=== PATIENT | female | born 1940 | race Caucasian/White ===

== ENCOUNTER 2016-07-04 09:51 | Inpatient (IN) | payer MEDICARE, BC ==
[2016-07-04] MEDS ORDERED: Sodium Chloride 0.9% 10 ML Syringe FLUSH PRN ×3 (11:01→17:00)
[2016-07-04] MEDS ORDERED: Lactated Ringers 1,000 ML IV ONE (11:01)
[2016-07-04] MEDS ORDERED: Albuterol/Ipratropium 3.0-0.5 MG/3 ML Neb Soln NEB ONE (11:03)
--- NOTE | 2016-07-04 11:08 | EDM.PDOC ---
ED HISTORY OF PRESENT ILLNESS - General Chief Complaint: Respiratory Problem Stated Complaint: CHEST CONGESTION Time Seen by Provider: 07/04/16 10:48 Source: Reports: Patient, Provider, RN notes reviewed History Limitations: Reports: No limitations - History of Present Illness INITIAL COMMENTS - FREE TEXT/NARRATIVE: 76-year-old female presents emergency department today for evaluation of increasing shortness of breath and hypoxia, she is a known history of throat cancer and pulmonary embolism is currently anticoagulated pro time this morning was 4.05, she was evaluated in the clinic by her primary care provider found to be hypoxic in the low 80% O2 saturation range was sent to the emergency department for further evaluation. Also she has been complaining of black tarry stools where she had a fairly large bowel movement last night. She states he's been ill for about 3 weeks with increasing shortness of breath - Related Data Allergies/ADRs: Allergies Allergy/AdvReac Type Severity Reaction Status Date / Time Iodinated Contrast Media - Allergy Severe Difficulty Verified 06/22/14 01:58 Oral and Breathing codeine Allergy Itching Verified 06/22/14 01:58 Penicillins Allergy Itching Verified 06/22/14 01:58 tetanus and diphtheria Allergy Itching Verified 06/22/14 01:58 toxoids [Tetanus&Diphtheria Toxoid] Home Meds: Home Meds Multivit-Min/FA/Lutein/Zeaxant [Macular Vitamin Tablet] 1 tab PO BID 05/09/14 [ History] Warfarin [Coumadin] 7.5 mg PO ASDIRECTED 05/09/14 [History] Acetaminophen [Tylenol] 650 mg PO BID PRN 06/17/14 [History] Metolazone [Zaroxolyn] 2.5 mg PO MOWEFR 06/17/14 [History] Furosemide [Lasix] 40 mg PO DAILY 06/19/14 [History] predniSONE [Prednisone] 10 mg PO ASDIRECTED PRN 06/22/14 [History] Morphine Sulfate 5 - 10 mg PO Q4H PRN 07/04/16 [History] Past Medical History Cardiovascular History: Reports: Heart Failure 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: Endocrine/Metabolic History: Reports: Diabetes, type II Oncologic (Cancer) History: Reports: Esophageal - Past Surgical History GI Surgical History: Reports: Appendectomy, Cholecystectomy Social & Family History - Tobacco Use Smoking Status *Q: Never Smoker Years of Tobacco use: 55 Used Tobacco, but Quit: Yes Month Tobacco Last Used: 0 Second Hand Smoke Exposure: No - Caffeine Use Caffeine Use: Reports: None - Alcohol Use Days Per Week of Alcohol Use: 0 - Recreational Drug Use Recreational Drug Use: No ED ROS GENERAL - Review of Systems Review Of Systems: See Below Constitutional: Reports: chills, weakness. Denies: fever HEENT: Reports: No symptoms Respiratory: Reports: Shortness of Breath, Wheezing, Cough Cardiovascular: Reports: Edema GI/Abdominal: Reports: Black stool Musculoskeletal: Reports: no symptoms Skin: Reports: no symptoms Neurological: Reports: No Symptoms Psychiatric: Reports: No symptoms ED EXAM, GENERAL - Physical Exam Exam: See Below Free Text/Narrative:: General: Female, not in any distress, alert and oriented x3 HEENT: head is atraumatic normocephalic, eyes pupils equal round reactive to light, sclera clear no conjunctivitis appreciated. Ears blocked by cerumen bilaterally. Nose no septal deviation, nares are clear, no blood present. Mouth mucosa is dry and pink no erythema or exudate noted in soft palate, tongue is midline uvula is midline, dentition is intact. Neck: Supple no thyromegaly no tracheal deviation. Nodes: Cervical nodes subclavicular nodes nontender no palpable lymphadenopathy noted. Lungs: Wheezing and rhonchi mid to lower lung pete bilaterally CV: Regular rate and rhythm S1 and S2 appreciated no murmurs rubs or gallops noted. Abdomen: Soft, generalized tenderness to palpation, no palpable masses or organomegaly appreciated, no distention no guarding bowel sounds are present, . Neuro: Cranial nerves II through XII grossly intact Skin: Warm and dry, intact Extremities: +3 pitting edema bilaterally Course - Vital Signs Last Recorded V/S: Last Vital Signs Temp 97.3 F 07/04/16 10:25 Pulse 73 07/04/16 10:25 Resp 17 07/04/16 10:25 BP 90/64 07/04/16 10:25 Pulse Ox 92 L 07/04/16 10:25 - Orders/Labs/Meds Orders: Active Orders 24 hr Category Date Time Status Admission Status [Patient Status] [ADT] Routine ADT 07/04/16 12:56 Active Peripheral IV Care [RC] . DIRECTED Care 07/04/16 11:02 Active Peripheral IV Care [RC] . DIRECTED Care 07/04/16 11:14 Active RT Aerosol Therapy [RC] ASDIRECTED Care 07/04/16 11:04 Active CULTURE BLOOD [BC] Urgent Lab 07/04/16 11:10 Received CULTURE BLOOD [BC] Urgent Lab 07/04/16 11:15 Received CULTURE RESPIRATORY + SMEAR [RM] Stat Lab 07/04/16 12:21 Uncollected INFLUENZA A+B AG SCREEN [RM] Urgent Lab 07/04/16 11:01 Uncollected UA W/MICROSCOPIC [URIN] Stat Lab 07/04/16 13:15 Ordered Levofloxacin/Dextrose 5%-Water [Levaquin in D5W 750 MG/ Med 07/04/16 12:21 Active 150 ML] 750 mg Premix Bag 1 bag IV ONETIME Sodium Chloride 0.9% [Saline Flush] Med 07/04/16 11:01 Active 10 ml FLUSH ASDIRECTED PRN Sodium Chloride 0.9% [Saline Flush] Med 07/04/16 11:13 Active 10 ml FLUSH ASDIRECTED PRN Blood Culture x2 Reflex Set [OM.PC] Urgent Oth 07/04/16 11:03 Ordered Peripheral IV Insertion Adult [OM.PC] Routine Oth 07/04/16 11:13 Ordered Peripheral IV Insertion Adult [OM.PC] Urgent Oth 07/04/16 11:01 Ordered Medication Orders Levofloxacin/Dextrose 750 mg/ (Premix) 150 mls @ 100 mls/hr IV ONETIME ONE Stop: 07/04/16 13:50 Last Admin: 07/04/16 12:40 Dose: 100 mls/hr Sodium Chloride (Saline Flush) 10 ml FLUSH ASDIRECTED PRN PRN Reason: Keep Vein Open Last Admin: 07/04/16 11:26 Dose: 10 ml Sodium Chloride (Saline Flush) 10 ml FLUSH ASDIRECTED PRN PRN Reason: Keep Vein Open Last Admin: 07/04/16 11:26 Dose: 10 ml Labs: Laboratory Tests 07/04/16 07/04/16 07/04/16 Range/Units 11:15 11:15 11:15 WBC 7.3 (4.5-11.0) K/uL RBC 4.92 (3.30-5.50) M/uL Hgb 13.9 (12.0-15.0) g/dL Hct 45.1 (36.0-48.0) % MCV 92 (80-98) fL MCH 28 (27-31) pg MCHC 31 L (32-36) % Plt Count 216 (150-400) K/uL Neut % (Auto) 67 H (36-66) % Lymph % (Auto) 19 L (24-44) % Stone % (Auto) 12 H (2-6) % Eos % (Auto) 2 (2-4) % Baso % (Auto) 1 (0-1) % Sodium 144 (140-148) mmol/L Potassium 4.7 (3.6-5.2) mmol/L Chloride 105 (100-108) mmol/L Carbon Dioxide 36 H (21-32) mmol/L Anion Gap 7.7 (5.0-14.0) mmol/L BUN 24 H (7-18) mg/dL Creatinine 0.7 (0.6-1.0) mg/dL Est Cr Clr Drug Dosing 66.49 mL/min Estimated GFR (MDRD) > 60 (>60) Glucose 107 H (74-106) mg/dL Lactic Acid 1.1 (0.4-2.0) mmol/L Calcium 8.4 L (8.5-10.1) mg/dL Total Bilirubin 0.3 (0.2-1.0) mg/dL AST 18 (15-37) U/L ALT 23 (12-78) U/L Alkaline Phosphatase 108 (46-116) U/L Cpx-N-Hqsvapxmnhh Pept (5-450) pg/mL Total Protein 7.3 (6.4-8.2) g/dL Albumin 2.9 L (3.4-5.0) g/dL Globulin 4.4 H (2.3-3.5) g/dL Albumin/Globulin Ratio 0.7 L (1.2-2.2) 07/04/16 Range/Units 11:15 WBC (4.5-11.0) K/uL RBC (3.30-5.50) M/uL Hgb (12.0-15.0) g/dL Hct (36.0-48.0) % MCV (80-98) fL MCH (27-31) pg MCHC (32-36) % Plt Count (150-400) K/uL Neut % (Auto) (36-66) % Lymph % (Auto) (24-44) % Stone % (Auto) (2-6) % Eos % (Auto) (2-4) % Baso % (Auto) (0-1) % Sodium (140-148) mmol/L Potassium (3.6-5.2) mmol/L Chloride (100-108) mmol/L Carbon Dioxide (21-32) mmol/L Anion Gap (5.0-14.0) mmol/L BUN (7-18) mg/dL Creatinine (0.6-1.0) mg/dL Est Cr Clr Drug Dosing mL/min Estimated GFR (MDRD) (>60) Glucose (74-106) mg/dL Lactic Acid (0.4-2.0) mmol/L Calcium (8.5-10.1) mg/dL Total Bilirubin (0.2-1.0) mg/dL AST (15-37) U/L ALT (12-78) U/L Alkaline Phosphatase (46-116) U/L Pyl-N-Euvoinpfypq Pept 148 (5-450) pg/mL Total Protein (6.4-8.2) g/dL Albumin (3.4-5.0) g/dL Globulin (2.3-3.5) g/dL Albumin/Globulin Ratio (1.2-2.2) Meds: Medications Generic Name Dose Route Start Last Admin Trade Name Freq PRN Reason Stop Dose Admin Levofloxacin/Dextrose 750 mg/ 150 mls @ 100 mls/hr 07/04/16 12:21 07/04/16 12 :40 Premix IV 07/04/16 13:50 100 mls/hr ONETIME ONE Administration Sodium Chloride 10 ml 07/04/16 11:01 07/04/16 11:26 Saline Flush FLUSH 10 ml ASDIRECTED PRN Administration Keep Vein Open Sodium Chloride 10 ml 07/04/16 11:13 07/04/16 11:26 Saline Flush FLUSH 10 ml ASDIRECTED PRN Administration Keep Vein Open Discontinued Medications Generic Name Dose Route Start Last Admin Trade Name Freq PRN Reason Stop Dose Admin Albuterol/Ipratropium 3 ml 07/04/16 11:03 07/04/16 11:24 Duoneb 3.0-0.5 Mg/3 Ml NEB 07/04/16 11:04 3 ml ONETIME ONE Administration Lactated Ringer's 1,000 mls @ 500 mls/hr 07/04/16 11:01 07/04/16 11:25 Ringers, Lactated IV 07/04/16 13:00 500 mls/hr ASDIRECTED ONE Administration Departure - Departure Time of Disposition: 13:24 Disposition: Admitted As Inpatient 66 Condition: poor Clinical Impression: Pneumonia Qualifiers: Pneumonia type: due to unspecified organism Laterality: right Lung location: lower lobe of lung Qualified Code(s): J18.1 - Lobar pneumonia, unspecified organism Forms: ED Department Discharge - My Orders Last 24 Hours: My Active Orders 07/04/16 11:01 INFLUENZA A+B AG SCREEN [RM] Urgent Sodium Chloride 0.9% [Saline Flush] 10 ml FLUSH ASDIRECTED PRN Peripheral IV Insertion Adult [OM.PC] Urgent 07/04/16 11:02 Peripheral IV Care [RC] . DIRECTED 07/04/16 11:03 Blood Culture x2 Reflex Set [OM.PC] Urgent 07/04/16 11:04 RT Aerosol Therapy [RC] ASDIRECTED 07/04/16 11:10 CULTURE BLOOD [BC] Urgent 07/04/16 11:13 Sodium Chloride 0.9% [Saline Flush] 10 ml FLUSH ASDIRECTED PRN Peripheral IV Insertion Adult [OM.PC] Routine 07/04/16 11:14 Peripheral IV Care [RC] . DIRECTED 07/04/16 11:15 CULTURE BLOOD [BC] Urgent 07/04/16 12:21 CULTURE RESPIRATORY + SMEAR [RM] Stat Levofloxacin/Dextrose 5%-Water [Levaquin in D5W 750 MG/150 ML] 750 mg Premix Bag 1 bag IV ONETIME 07/04/16 13:15 UA W/MICROSCOPIC [URIN] Stat - Assessment/Plan Last 24 Hours: My Active Orders 07/04/16 11:01 INFLUENZA A+B AG SCREEN [RM] Urgent Sodium Chloride 0.9% [Saline Flush] 10 ml FLUSH ASDIRECTED PRN Peripheral IV Insertion Adult [OM.PC] Urgent 07/04/16 11:02 Peripheral IV Care [RC] . DIRECTED 07/04/16 11:03 Blood Culture x2 Reflex Set [OM.PC] Urgent 07/04/16 11:04 RT Aerosol Therapy [RC] ASDIRECTED 07/04/16 11:10 CULTURE BLOOD [BC] Urgent 07/04/16 11:13 Sodium Chloride 0.9% [Saline Flush] 10 ml FLUSH ASDIRECTED PRN Peripheral IV Insertion Adult [OM.PC] Routine 07/04/16 11:14 Peripheral IV Care [RC] . DIRECTED 07/04/16 11:15 CULTURE BLOOD [BC] Urgent 07/04/16 12:21 CULTURE RESPIRATORY + SMEAR [RM] Stat Levofloxacin/Dextrose 5%-Water [Levaquin in D5W 750 MG/150 ML] 750 mg Premix Bag 1 bag IV ONETIME 07/04/16 13:15 UA W/MICROSCOPIC [URIN] Stat Plan: Assessment Acuity = acute Site and laterality = community-acquired pneumonia complicated patient with known history of throat cancer and pulmonary embolism on chronic anticoagulation , also concern for development of GI bleed with black tarry stools Etiology = suspicious for bacterial cause for pneumonia, for GI bleed supratherapeutic INR Manifestations = hypoxia, dyspnea Location of injury = home Lab values = CBC CMP unremarkable lactic acid within normal range albumin low at 2.9 consistent hypoalbuminemia INR is supratherapeutic 4.05, patient refused influenza screen Plan Called and discussed the case with hospitalist agronomy professor he agreed to come and evaluate the patient the ED for admission Patient was in agreement with the plan all questions were answered, This note was dictated using [employer] voice recognition software please call with any questions.
--- NOTE | 2016-07-04 11:56 | CR ---
Mild cardiomegaly. Mild hazy density within the right lung base findings could indicate infiltrate o r atelectasis. Left lung is clear.
[2016-07-04] MEDS ORDERED: Levofloxacin/Dextrose 5%-Water 750 MG in Premix Bag 1 BAG IV ONE (12:21)
[2016-07-04] MEDS ORDERED: Docusate Sodium 100 MG Cap PO PRN (17:00)
[2016-07-04] MEDS ORDERED: Albuterol 0.083% 2.5 MG/3 ML Neb Soln NEB PRN (17:00)
[2016-07-04] MEDS ORDERED: Polyethylene Glycol 3350 Powder 17 GM Packet PO PRN (17:00)
[2016-07-04] MEDS ORDERED: Ondansetron 4 MG/2 ML SDV IV PRN (17:00)
[2016-07-04] MEDS ORDERED: Magnesium Hydroxide 400 MG/5 ML Susp 30 ML Cup PO PRN (17:00)
[2016-07-04] MEDS ORDERED: Morphine 10 MG/0.5 ML Oral Syringe PO PRN (17:15)
[2016-07-04] MEDS ORDERED: Phytonadione 1 MG in Sodium Chloride 0.9% 50 ML IV ONE (17:30)
[2016-07-04] MEDS: methylPREDNISolone Sodium Succinate 40 MG/1 ML SDV IVPUSH SCH (17:45)
[2016-07-04] MEDS: Sodium Chloride 0.9% 1,000 ML IV SCH (18:43)
--- NOTE | 2016-07-04 19:44 | PCM.HP ---
H&P History of Present Illness - General Date of Service: 07/04/16 Admit Problem/Dx: Admission Diagnosis/Problem Admission Diagnosis/Problem Hypoxia Source of Information: Patient, Old records, Provider, RN notes reviewed History Limitations: Reports: No limitations - History of Present Illness Initial Comments - Free Text/Narative: This patient is a 76-year-old woman who is admitted through the emergency department with shortness of breath, productive cough, hypoxia, and recent history of melenic stools. She has a known history of throat cancer, which she has decided not to treat further. Because of throat cancer has had ongoing difficulty with swallowing. She denies any coughing or choking with eating. Initially began to have difficulty with respiratory symptoms over the past 2 weeks, she did receive a course of outpatient antibiotic therapy which did not provide significant benefit. Over the past few days symptoms worsened with increased chest ingestion, cough, and shortness of breath. On evaluation in the clinic was found to be hypoxic and referred to the emergency department for further evaluation and management. Hypoxia was again confirmed, white blood cell count is normal, chest x-ray shows no obvious infiltrates. She does have a [id number] smoking history, quit smoking approximately 5 years ago. Yesterday during the day had 2 melenic stools and has felt more weak and lightheaded. She is on long-term oral anticoagulation with warfarin because of a history of deep vein thrombosis and pulmonary embolism. Throat Pain Score (Numeric/FACES): 8 - Related Data Allergies/Adverse Reactions: Allergies Allergy/AdvReac Type Severity Reaction Status Date / Time Iodinated Contrast Media - Allergy Severe Difficulty Verified 06/22/14 01:58 Oral and Breathing codeine Allergy Itching Verified 06/22/14 01:58 Penicillins Allergy Itching Verified 06/22/14 01:58 tetanus and diphtheria Allergy Itching Verified 06/22/14 01:58 toxoids [Tetanus&Diphtheria Toxoid] Home Medications: Home Meds Multivit-Min/FA/Lutein/Zeaxant [Macular Vitamin Tablet] 1 tab PO BID 05/09/14 [ History] Warfarin [Coumadin] 7.5 mg PO ASDIRECTED 05/09/14 [History] Acetaminophen [Tylenol] 650 mg PO BID PRN 06/17/14 [History] Metolazone [Zaroxolyn] 2.5 mg PO MOWEFR 06/17/14 [History] Furosemide [Lasix] 40 mg PO DAILY 06/19/14 [History] predniSONE [Prednisone] 10 mg PO ASDIRECTED PRN 06/22/14 [History] Morphine Sulfate 5 - 10 mg PO Q4H PRN 07/04/16 [History] Past Medical History Cardiovascular History: Reports: Heart Failure 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: Endocrine/Metabolic History: Reports: Diabetes, type II Oncologic (Cancer) History: Reports: Esophageal - Past Surgical History GI Surgical History: Reports: Appendectomy, Cholecystectomy Social & Family History - Tobacco Use Smoking Status *Q: Never Smoker Years of Tobacco use: 55 Used Tobacco, but Quit: Yes Month Tobacco Last Used: 0 Second Hand Smoke Exposure: No - Caffeine Use Caffeine Use: Reports: None - Alcohol Use Days Per Week of Alcohol Use: 0 - Recreational Drug Use Recreational Drug Use: No H&P Review of Systems - Review of Systems: Review Of Systems: See Below General: Denies: fever, chills, weakness, diaphoresis HEENT: Reports: no symptoms Pulmonary: Reports: Shortness of Breath, Cough, Sputum. Denies: Pleuritic Chest Pain, Hemoptysis Cardiovascular: Denies: chest pain, palpitations, orthopnea, PND Gastrointestinal: Reports: No symptoms Genitourinary: Reports: no symptoms Musculoskeletal: Reports: no symptoms Skin: Reports: no symptoms Psychiatric: Reports: no symptoms Neurological: Reports: No Symptoms Hematologic/Lymphatic: Reports: no symptoms Immunologic: Reports: no symptoms Exam - Exam Exam: See Below - Vital Signs Vital Signs: Last Vital Signs Temp 97.2 F 07/04/16 14:00 Pulse 68 07/04/16 14:00 Resp 20 07/04/16 14:00 BP 98/50 L 07/04/16 14:00 Pulse Ox 95 07/04/16 14:00 Weight: 295 lb - Exam Quality Assessment: supplemental oxygen, DVT prophylaxis General: alert, oriented, cooperative, mild distress HEENT: Conjunctiva clear, EOMI, Hearing intact, Mucosa moist & pink, Nares patent, Normal nasal septum, Posterior pharynx clear, Pupils equal, Pupils reactive Neck: supple, trachea midline Lungs: Decreased breath sounds, Rhonchi, Wheezing. No: Crackles, Rales, Rub, Stridor Cardiovascular: regular rate, regular rhythm, normal S1, normal S2 Abdomen: normal bowel sounds, soft Back Exam: normal inspection, full range of motion, NT Extremities: normal inspection. No: edema Skin: warm, dry, intact Neurological: cranial nerves intact, strength equal bilateral, normal speech, normal tone, sensation intact. No: focal deficit Neuro Extensive - Mental Status: alert, oriented x3, normal mood/affect, normal cognition, memory intact - Patient Data Lab Results last 24 hrs: Laboratory Results - last 24 hr 07/04/16 07/04/16 Range/Units 13:15 17:19 Hgb 12.6 (12.0-15.0) g/dL Urine Color Yellow Urine Appearance Cloudy Urine pH 5.0 (4.5-8.0) Ur Specific [place] 1.020 (1.008-1.030) Urine Protein Negative (NEGATIVE) mg/dL Urine Glucose (UA) Normal (NEGATIVE) mg/dL Urine Ketones Negative (NEGATIVE) mg/dL Urine Occult Blood Large (NEGATIVE) Urine Nitrite Negative (NEGATIVE) Urine Bilirubin Negative (NEGATIVE) Urine Urobilinogen 1 (NORMAL) mg/dL Ur Leukocyte Esterase Moderate (NEGATIVE) Urine RBC 75-100 H (0-5) Urine WBC 30-40 H (0-5) Ur Epithelial Cells Many Amorphous Sediment Not seen Urine Bacteria Moderate Urine Mucus Few Result Diagrams: 07/04/16 17:19 07/04/16 11:15 *Q Meaningful Use (ADM) - VTE *Q VTE Criteria *Q: VTE Pharmacological Contraindications *Q: Active Hemorrhage - VTE Risk Assess *Q Each Risk Factor Represents 1 Point: Obesity (BMI greater than 30), Abnormal Pulmonary Function (COPD) Total Score 1 Point Risk Factors: 2 Each Risk Factor Represents 2 Points: None Total Score 2 Point Risk Factors: 0 Each Risk Factor Represents 3 Points: Age 75 Years or Greater, History Superficial Venous Thrombosis, DVT or PE, Present Cancer or Chemotherapy Total Score 3 Point Risk Factors: 9 Each Risk Factor Represents 5 Points: None Total Score 5 Point Risk Factors: 0 Venous Thromboembolism Risk Factor Score *Q: 11 - Stroke *Q Stroke Criteria *Q: - AMI *Q AMI Criteria *Q: Problem List Initiated/Reviewed/Updated: Yes Orders Last 24hrs: Active Orders 24 hr Category Date Time Status Patient Status [ADT] Routine ADT 07/04/16 17:00 Active Intake and Output [RC] QSHIFT Care 07/04/16 17:00 Active Notify Provider Vital Signs [RC] ASDIRECTED Care 07/04/16 17:00 Active Oxygen Therapy [RC] PRN Care 07/04/16 17:00 Active Peripheral IV Care [RC] . DIRECTED Care 07/04/16 17:00 Active RT Aerosol Therapy [RC] ASDIRECTED Care 07/04/16 17:00 Active Up With Assistance [RC] ASDIRECTED Care 07/04/16 17:00 Active VTE/DVT Education [RC] Per Unit Routine Care 07/04/16 17:00 Active Vital Signs [RC] Q4H Care 07/04/16 17:00 Active PT Evaluation and Treatment [CONS] Routine Cons 07/04/16 17:00 Active 2 Gram Sodium Diet [DIET] Diet 07/04/16 Lunch Active Consistent Carbohydrate Diet [DIET] Diet 07/04/16 Lunch Active CBC WITH AUTO DIFF [HEME] AM Lab 07/05/16 05:11 Ordered COMPREHENSIVE METABOLIC PN,CMP [CHEM] AM Lab 07/05/16 05:11 Ordered INR,PT,PROTHROMBIN TIME [COAG] AM Lab 07/05/16 05:11 Ordered Acetaminophen [Tylenol] Med 07/04/16 17:00 Active 650 mg PO Q4H PRN Albuterol [Proventil Neb Soln] Med 07/04/16 17:00 Active 2.5 mg NEB Q4H PRN Albuterol/Ipratropium [DuoNeb 3.0-0.5 MG/3 ML] Med 07/04/16 21:00 Active 3 ml NEB QIDRT Docusate Sodium [Colace] Med 07/04/16 17:00 Active 100 mg PO BID PRN Furosemide [Lasix] Med 07/05/16 09:00 Active 40 mg PO DAILY Levofloxacin/Dextrose 5%-Water [Levaquin in D5W 500 MG/ Med 07/05/16 12:00 Active 100 ML] 500 mg Premix Bag 1 bag IV Q24H Magnesium Hydroxide [Milk of Magnesia] Med 07/04/16 17:00 Active 30 ml PO Q12H PRN Metolazone [Zaroxolyn] Med 07/05/16 08:30 Active 2.5 mg PO MoWeFr@0830 Morphine [Morphine 10 MG/0.5 ML Oral Syringe] Med 07/04/16 17:15 Active 5 - 10 mg PO Q1H PRN Ondansetron [Zofran] Med 07/04/16 17:00 Active 4 mg IV Q4H PRN Polyethylene Glycol 3350 [MiraLAX] Med 07/04/16 17:00 Active 17 gm PO DAILY PRN Sodium Chloride 0.9% [Normal Saline] 1,000 ml Med 07/04/16 17:00 Active IV ASDIRECTED Sodium Chloride 0.9% [Saline Flush] Med 07/04/16 17:00 Active 10 ml FLUSH ASDIRECTED PRN methylPREDNISolone Sod Succ [Solu-MEDROL] Med 07/04/16 18:00 Active 40 mg IVPUSH Q8H Peripheral IV Insertion Adult [OM.PC] Routine Oth 07/04/16 17:00 Ordered Sequential Compression Device [OM.PC] Per Unit Routine Oth 07/04/16 17:00 Ordered VTE Pharmacological Contraindications [AST] Per Unit Oth 07/04/16 17:00 Ordered Routine Resuscitation Status Routine Resus Stat 07/04/16 16:55 Ordered Medication Orders Acetaminophen (Tylenol) 650 mg PO Q4H PRN PRN Reason: Pain (Mild 1-3)/fever Albuterol (Proventil Neb Soln) 2.5 mg NEB Q4H PRN PRN Reason: Shortness Of Breath/wheezing Albuterol/Ipratropium (Duoneb 3.0-0.5 Mg/3 Ml) 3 ml NEB QIDRT [facility] Docusate Sodium (Colace) 100 mg PO BID PRN PRN Reason: Constipation Furosemide (Lasix) 40 mg PO DAILY [facility] Levofloxacin/Dextrose 500 mg/ (Premix) 100 mls @ 100 mls/hr IV Q24H [facility] Sodium Chloride (Normal Saline) 1,000 mls @ 125 mls/hr IV ASDIRECTED [facility] Last Admin: 07/04/16 18:43 Dose: 125 mls/hr Magnesium Hydroxide (Milk Of Magnesia) 30 ml PO Q12H PRN PRN Reason: Constipation Methylprednisolone Sodium Succinate (Solu-Medrol) 40 mg IVPUSH Q8H [facility] Last Admin: 07/04/16 17:45 Dose: 40 mg Metolazone (Zaroxolyn) 2.5 mg PO MoWeFr@0830 [facility] Morphine Sulfate (Morphine 10 Mg/0.5 Ml Oral Syringe) 5 - 10 mg PO Q1H PRN PRN Reason: PAIN Ondansetron HCl (Zofran) 4 mg IV Q4H PRN PRN Reason: Nausea/Vomiting Polyethylene Glycol (Miralax) 17 gm PO DAILY PRN PRN Reason: Constipation Sodium Chloride (Saline Flush) 10 ml FLUSH ASDIRECTED PRN PRN Reason: Keep Vein Open Assessment/Plan Comment:: ASSESSMENT AND PLAN COPD EXACERBATION SECONDARY TO BRONCHITIS-progressive symptoms of shortness of breath over the past week, significantly worse over the past few days. -Supplemental oxygen as needed -Nebulized albuterol and duo nebs -Solu-Medrol 40 mg IV every 8 hours -Levofloxacin 500 mg IV daily HYPOXIC RESPIRATORY FAILURE-secondary to COPD exacerbation as above MELENIC STOOLS-probable upper GI bleed. She is on long-term oral anticoagulation with warfarin. She does not want to pursue further evaluation and refuses EGD as well as colonoscopy. -Monitor closely for further bleeding -IV Protonix twice daily -Serial hemoglobin levels THROAT CANCER-recurrent after previous treatment, she has refused any further chemotherapy or radiation. She does not want to consider hospice but does want comfort cares. -Comfort measures as needed -Consider hospice in the future PALLIATIVE CARE MAINTENANCE ISSUES -DVT prophylaxis;SCUDs, hold on anticoagulation because of bleeding -GI prophylaxis;Protonix as above -Valle catheter;not indicated -Nutrition;2 g sodium diet -Nicotine dependence;not required CODE STATUS-FULL CODE ADMISSION STATUS-patient will be admitted to inpatient status, expect at least a 2 night hospital stay for evaluation and management of problems as outlined above. At the time of this admission I do not reasonably expected evaluation and management of this problem will require more than a 96 hour hospital stay. DISPOSITION-anticipate discharge to home after the hospital stay. PRIMARY CARE PROVIDER-Dr. Ventura
[2016-07-04] MEDS: Albuterol/Ipratropium 3.0-0.5 MG/3 ML Neb Soln NEB SCH (20:41)
[2016-07-04] MEDS: Acetaminophen 325 MG Tab PO PRN (22:28)
[2016-07-05] MEDS: methylPREDNISolone Sodium Succinate 40 MG/1 ML SDV IVPUSH SCH (02:25)
[2016-07-05] MEDS: Sodium Chloride 0.9% 1,000 ML IV SCH (06:15)
[2016-07-05] MEDS: Albuterol/Ipratropium 3.0-0.5 MG/3 ML Neb Soln NEB SCH ×4 (07:11→20:25)
[2016-07-05] MEDS ORDERED: Metolazone 2.5 MG Tab PO SCH (08:30)
[2016-07-05] MEDS ORDERED: LORazepam ORAL Concentrate 1MG/0.5ML U/D BUCCAL PRN (08:59)
[2016-07-05] MEDS: Furosemide 40 MG Tab PO SCH (09:45)
[2016-07-05] MEDS ORDERED: HYDROmorphone ORAL Concentrate 1 MG/ML CONT U/D PO PRN (10:10)
[2016-07-05] MEDS: Aspirin 81 MG Tab.Chew PO SCH (11:00)
[2016-07-05] MEDS ORDERED: Levofloxacin/Dextrose 5%-Water 500 MG in Premix Bag 1 BAG IV SCH (12:00)
--- NOTE | 2016-07-05 12:53 | PCM.PN ---
- General Info Date of Service: 07/05/16 Functional Status: Reports: tolerating diet - Review of Systems General: Reports: Weakness Pulmonary: Reports: shortness of breath, cough, wheezing. Denies: pleuritic chest pain, sputum, hemoptysis Cardiovascular: Reports: Dyspnea on Exertion. Denies: Chest Pain, Palpitations , Orthopnea Gastrointestinal: Reports: No symptoms. Denies: Melena Systems Review Comment:: This patient has had no further melena or evidence of bleeding since admission. This morning has had increased respiratory compromise with saturations into the low 80s despite higher levels of supplemental oxygen. Plan originally had been to place her on BiPAP and move her to the intensive care unit for more close observation monitoring and management. She has decided that she does not want to pursue further aggressive interventions and wants to be kept comfortable and discharged home as soon as possible. We did discuss hospice and hospice has come to see her this morning but she wants to forego hospice at the present time. - Patient Data Vitals - most recent: Last Vital Signs Temp 98.3 F 07/05/16 11:08 Pulse 76 07/05/16 11:08 Resp 36 H 07/05/16 11:08 BP 93/53 L 07/05/16 11:08 Pulse Ox 88 L 07/05/16 11:08 Weight - most recent: 295 lb 0.009 oz I&O - last 24 hours: Intake & Output 07/04/16 07/05/16 07/05/16 22:59 06:59 14:59 Intake Total 1307 Output Total 390 325 Balance -390 982 Lab Results last 24 hrs: Laboratory Results - last 24 hr 07/04/16 07/04/16 07/05/16 Range/Units 13:15 17:19 06:12 WBC 6.7 (4.5-11.0) K/uL RBC 4.33 (3.30-5.50) M/uL Hgb 12.6 11.9 L (12.0-15.0) g/dL Hct 40.5 (36.0-48.0) % MCV 94 (80-98) fL MCH 28 (27-31) pg MCHC 29 L (32-36) % Plt Count 203 (150-400) K/uL Neut % (Auto) 90 H (36-66) % Lymph % (Auto) 9 L (24-44) % Rankin % (Auto) 2 (2-6) % Eos % (Auto) 0 L (2-4) % Baso % (Auto) 0 (0-1) % PT (9.5-12.0) sec INR (0.80-1.20) Sodium (140-148) mmol/L Potassium (3.6-5.2) mmol/L Chloride (100-108) mmol/L Carbon Dioxide (21-32) mmol/L Anion Gap (5.0-14.0) mmol/L BUN (7-18) mg/dL Creatinine (0.6-1.0) mg/dL Est Cr Clr Drug Dosing mL/min Estimated GFR (MDRD) (>60) Glucose (74-106) mg/dL Calcium (8.5-10.1) mg/dL Total Bilirubin (0.2-1.0) mg/dL AST (15-37) U/L ALT (12-78) U/L Alkaline Phosphatase (46-116) U/L Total Protein (6.4-8.2) g/dL Albumin (3.4-5.0) g/dL Globulin (2.3-3.5) g/dL Albumin/Globulin Ratio (1.2-2.2) Urine Color Yellow Urine Appearance Cloudy Urine pH 5.0 (4.5-8.0) Ur Specific [place] 1.020 (1.008-1.030) Urine Protein Negative (NEGATIVE) mg/dL Urine Glucose (UA) Normal (NEGATIVE) mg/dL Urine Ketones Negative (NEGATIVE) mg/dL Urine Occult Blood Large (NEGATIVE) Urine Nitrite Negative (NEGATIVE) Urine Bilirubin Negative (NEGATIVE) Urine Urobilinogen 1 (NORMAL) mg/dL Ur Leukocyte Esterase Moderate (NEGATIVE) Urine RBC 75-100 H (0-5) Urine WBC 30-40 H (0-5) Ur Epithelial Cells Many Amorphous Sediment Not seen Urine Bacteria Moderate Urine Mucus Few 07/05/16 07/05/16 Range/Units 06:12 06:12 WBC (4.5-11.0) K/uL RBC (3.30-5.50) M/uL Hgb (12.0-15.0) g/dL Hct (36.0-48.0) % MCV (80-98) fL MCH (27-31) pg MCHC (32-36) % Plt Count (150-400) K/uL Neut % (Auto) (36-66) % Lymph % (Auto) (24-44) % Rankin % (Auto) (2-6) % Eos % (Auto) (2-4) % Baso % (Auto) (0-1) % PT 15.7 H (9.5-12.0) sec INR 1.46 H D (0.80-1.20) Sodium 144 (140-148) mmol/L Potassium 4.9 (3.6-5.2) mmol/L Chloride 107 (100-108) mmol/L Carbon Dioxide 36 H (21-32) mmol/L Anion Gap 5.9 (5.0-14.0) mmol/L BUN 21 H (7-18) mg/dL Creatinine 0.6 (0.6-1.0) mg/dL Est Cr Clr Drug Dosing 77.57 mL/min Estimated GFR (MDRD) > 60 (>60) Glucose 144 H (74-106) mg/dL Calcium 7.9 L (8.5-10.1) mg/dL Total Bilirubin 0.3 (0.2-1.0) mg/dL AST 19 (15-37) U/L ALT 21 (12-78) U/L Alkaline Phosphatase 95 (46-116) U/L Total Protein 6.5 (6.4-8.2) g/dL Albumin 2.4 L (3.4-5.0) g/dL Globulin 4.1 H (2.3-3.5) g/dL Albumin/Globulin Ratio 0.6 L (1.2-2.2) Urine Color Urine Appearance Urine pH (4.5-8.0) Ur Specific [place] (1.008-1.030) Urine Protein (NEGATIVE) mg/dL Urine Glucose (UA) (NEGATIVE) mg/dL Urine Ketones (NEGATIVE) mg/dL Urine Occult Blood (NEGATIVE) Urine Nitrite (NEGATIVE) Urine Bilirubin (NEGATIVE) Urine Urobilinogen (NORMAL) mg/dL Ur Leukocyte Esterase (NEGATIVE) Urine RBC (0-5) Urine WBC (0-5) Ur Epithelial Cells Amorphous Sediment Urine Bacteria Urine Mucus Med Orders - Current: Current Medications Acetaminophen (Tylenol) 650 mg PO Q4H PRN PRN Reason: Pain (Mild 1-3)/fever Last Admin: 07/04/16 22:28 Dose: 650 mg Albuterol (Proventil Neb Soln) 2.5 mg NEB Q4H PRN PRN Reason: Shortness Of Breath/wheezing Albuterol/Ipratropium (Duoneb 3.0-0.5 Mg/3 Ml) 3 ml NEB QIDRT [facility] Last Admin: 07/05/16 10:53 Dose: 3 ml Aspirin (Aspirin) 81 mg PO DAILY [facility] Last Admin: 07/05/16 11:00 Dose: 81 mg Docusate Sodium (Colace) 100 mg PO BID PRN PRN Reason: Constipation Furosemide (Lasix) 40 mg PO DAILY [facility] Last Admin: 07/05/16 09:45 Dose: 40 mg Hydromorphone HCl (Dilaudid 1 Mg/Ml U/D) 2 mg PO Q2H PRN PRN Reason: PAIN Lorazepam (Ativan Oral Concentrate 1mg/0.5 Ml U/D) 0.5 mg BUCCAL Q2H PRN PRN Reason: Anxiety Magnesium Hydroxide (Milk Of Magnesia) 30 ml PO Q12H PRN PRN Reason: Constipation Metolazone (Zaroxolyn) 2.5 mg PO [id number] [facility] Last Admin: 07/05/16 09:13 Dose: 2.5 mg Ondansetron HCl (Zofran) 4 mg IV Q4H PRN PRN Reason: Nausea/Vomiting Polyethylene Glycol (Miralax) 17 gm PO DAILY PRN PRN Reason: Constipation Sodium Chloride (Saline Flush) 10 ml FLUSH ASDIRECTED PRN PRN Reason: Keep Vein Open Discontinued Medications Albuterol/Ipratropium (Duoneb 3.0-0.5 Mg/3 Ml) 3 ml NEB ONETIME ONE Stop: 07/04/16 11:04 Last Admin: 07/04/16 11:24 Dose: 3 ml Lactated Ringer's (Ringers, Lactated) 1,000 mls @ 500 mls/hr IV ASDIRECTED ONE Stop: 07/04/16 13:00 Last Admin: 07/04/16 11:25 Dose: 500 mls/hr Levofloxacin/Dextrose 750 mg/ (Premix) 150 mls @ 100 mls/hr IV ONETIME ONE Stop: 07/04/16 13:50 Last Admin: 07/04/16 12:40 Dose: 100 mls/hr Levofloxacin/Dextrose 500 mg/ (Premix) 100 mls @ 100 mls/hr IV Q24H [facility] Phytonadione 1 mg/ Sodium (Chloride) 50.5 mls @ 100 mls/hr IV ONETIME ONE Stop: 07/04/16 18:00 Last Admin: 07/04/16 17:49 Dose: 100 mls/hr Sodium Chloride (Normal Saline) 1,000 mls @ 125 mls/hr IV ASDIRECTED [facility] Last Admin: 07/05/16 06:15 Dose: 125 mls/hr Methylprednisolone Sodium Succinate (Solu-Medrol) 40 mg IVPUSH Q8H [facility] Last Admin: 07/05/16 02:25 Dose: 40 mg Morphine Sulfate (Morphine 10 Mg/0.5 Ml Oral Syringe) 5 - 10 mg PO Q1H PRN PRN Reason: PAIN Sodium Chloride (Saline Flush) 10 ml FLUSH ASDIRECTED PRN PRN Reason: Keep Vein Open Last Admin: 07/04/16 11:26 Dose: 10 ml Sodium Chloride (Saline Flush) 10 ml FLUSH ASDIRECTED PRN PRN Reason: Keep Vein Open Last Admin: 07/04/16 11:26 Dose: 10 ml - Exam Quality Assessment: supplemental oxygen General: alert, oriented, cooperative, moderate distress Lungs: Decreased breath sounds, Rhonchi, Wheezing. No: Crackles, Rales, Rub Cardiovascular: Regular Rate, Regular Rhythm, No Murmurs Abdomen: bowel sounds present, soft, no tenderness, no distension Extremities: edema - Problem List Review Problem List Initiated/Reviewed/Updated: Yes - My Orders Last 24 Hours: My Active Orders 07/04/16 16:55 Resuscitation Status Routine 07/04/16 17:00 Patient Status [ADT] Routine Oxygen Therapy [RC] PRN Peripheral IV Care [RC] Q12H RT Aerosol Therapy [RC] ASDIRECTED Up With Assistance [RC] ASDIRECTED VTE/DVT Education [RC] Per Unit Routine Vital Signs [RC] Q4H Acetaminophen [Tylenol] 650 mg PO Q4H PRN Albuterol [Proventil Neb Soln] 2.5 mg NEB Q4H PRN Docusate Sodium [Colace] 100 mg PO BID PRN Magnesium Hydroxide [Milk of Magnesia] 30 ml PO Q12H PRN Ondansetron [Zofran] 4 mg IV Q4H PRN Polyethylene Glycol 3350 [MiraLAX] 17 gm PO DAILY PRN Sodium Chloride 0.9% [Saline Flush] 10 ml FLUSH ASDIRECTED PRN Peripheral IV Insertion Adult [OM.PC] Routine 07/04/16 21:00 Albuterol/Ipratropium [DuoNeb 3.0-0.5 MG/3 ML] 3 ml NEB QIDRT 07/04/16 Lunch 2 Gram Sodium Diet [DIET] 07/05/16 07:53 RT BiPAP/CPAP [RC] ASDIRECTED 07/05/16 08:26 Urinary Catheter Assessment [RC] Q12H 07/05/16 08:30 Valle Catheter Insertion [Insert Urinary Catheter] [OM.PC] Q24H Metolazone [Zaroxolyn] 2.5 mg PO [id number]@0830 07/05/16 08:59 Consult to Hospice [CONS] Routine LORazepam [Ativan ORAL Concentrate 1MG/0.5 ML U/D] 0.5 mg BUCCAL Q2H PRN Convert IV to Saline Lock [OM.PC] Routine 07/05/16 09:00 Furosemide [Lasix] 40 mg PO DAILY 07/05/16 10:00 Aspirin 81 mg PO DAILY 07/05/16 10:10 HYDROmorphone [Dilaudid 1 MG/ML U/D] 2 mg PO Q2H PRN - Plan Plan:: ASSESSMENT AND PLAN COPD EXACERBATION SECONDARY TO BRONCHITIS-she has decided to pursue comfort cares only and does not want further aggressive interventions including supplemental oxygen. -Nebulizer therapy if needed for comfort -Dilaudid as needed for dyspnea and/or pain -Lorazepam as needed for anxiety HYPOXIC RESPIRATORY FAILURE MELENIC STOOLS-no further evaluation patient wants comfort cares only THROAT CANCER-recurrent after previous treatment, she has refused any further chemotherapy or radiation. She does not want to consider hospice but does want comfort cares. -Comfort measures as needed -Consider hospice in the future PALLIATIVE CARE MAINTENANCE ISSUES -DVT prophylaxis;SCUDs, hold on anticoagulation because of bleeding -GI prophylaxis;Protonix as above -Valle catheter;not indicated -Nutrition;2 g sodium diet -Nicotine dependence;not required CODE STATUS-COMFORT CARES ONLY ADMISSION STATUS-patient will be admitted to inpatient status, expect at least a 2 night hospital stay for evaluation and management of problems as outlined above. At the time of this admission I do not reasonably expected evaluation and management of this problem will require more than a 96 hour hospital stay. DISPOSITION-anticipate discharge to home after the hospital stay. PRIMARY CARE PROVIDER-Dr. Ventura
[2016-07-05] MEDS: Acetaminophen 325 MG Tab PO PRN (22:06)
[2016-07-06] MEDS: Acetaminophen 325 MG Tab PO PRN (05:57)
[2016-07-06] MEDS: Albuterol/Ipratropium 3.0-0.5 MG/3 ML Neb Soln NEB SCH ×2 (07:25→12:36)
[2016-07-06] MEDS: Aspirin 81 MG Tab.Chew PO SCH (08:18)
[2016-07-06] MEDS: Furosemide 40 MG Tab PO SCH (08:18)
[2016-07-06 09:14] VITALS: BP 89/52
--- NOTE | 2016-07-06 12:20 | PCM.DCSUM1 ---
Discharge Summary - Hospital Course Brief History: This patient is a 76-year-old woman was admitted through the emergency department with a known history of throat cancer and progressive symptoms of weakness shortness of breath and melena. - Discharge Data Discharge Date: 07/06/16 Discharge Disposition: Home, Self-Care 01 Condition: Poor - Discharge Diagnosis/Problem(s) (1) Hypoxia SNOMED Code(s): 381216391, 526439486 ICD Code: R09.02 - HYPOXEMIA Status: Acute Current Visit: Yes (2) COPD exacerbation SNOMED Code(s): 420570668, 741404746 ICD Code: J44.1 - CHRONIC OBSTRUCTIVE PULMONARY DISEASE W (ACUTE) EXACERBATION Status: Acute Current Visit: Yes (3) Bronchitis SNOMED Code(s): 67625183 ICD Code: J40 - BRONCHITIS, NOT SPECIFIED ACUTE OR CHRONIC Status: Acute Current Visit: Yes (4) Melena SNOMED Code(s): 5528026, 946684057 ICD Code: K92.1 - MELENA Status: Acute Current Visit: Yes (5) Malignant neoplasm of throat SNOMED Code(s): 657002752 ICD Code: C14.0 - MALIGNANT NEOPLASM OF PHARYNX, UNSPECIFIED Status: Acute Current Visit: Yes - Patient Summary/Data Consults: Consultations 07/05/16 08:59 Consult to Hospice [CONS] Routine Comment: Physician Instructions: Reason for Consult: Throat cancer Hospital Course: Patient has a known history of the progressive throat cancer unresponsive to recent chemotherapy and previous radiation. She's decided not to pursue any further evaluation or management of her cancer. Prior to admission developed increased shortness of breath associated with progressive weakness. She also reported 2 episodes of melenic stools on the day prior to admission. Hemoglobin was found to be relatively stable on admission and there was no evidence of active GI bleeding. Chest x-ray showed no obvious infiltrates along it was felt that she had probable COPD exacerbation secondary to bronchitis. She was given IV fluids for hydration and started on IV antibiotic therapy with levofloxacin in addition to supplemental oxygen and nebulizer therapy. Following morning she had an acute exacerbation of her shortness of breath and became significantly hypoxic. We discussed options for management including use of noninvasive ventilation and transferred to the intensive care unit. At this time she requested that she be treated for comfort only and requested that all other interventions be discontinued. We discussed the option of hospice care and hospice staff members did come and visit with the patient but at the present time she has refused hospice enrollment. Serial hemoglobins were monitored up to that point and showed no significant drop and she had no obvious evidence of active bleeding during her hospital stay. She did request discharge to home as soon as possible and will be discharged home for ongoing comfort cares. She did change her mind concerning antibiotics and will be discharged with levofloxacin 500 mg daily for an additional 6 days. Activity will be as tolerated and she will resume her usual diet. She does have a hospice number available and will reconsider hospice admission if she has further deterioration over the next few weeks. Followup appointment will be scheduled with Dr. Ventura within one week. - Patient Instructions Diet: Usual Diet as Tolerated Activity: As Tolerated Other/Special Instructions: She would like to proceed with comfort cares only, refuses hospice care at the present time. Schedule followup appointment with Dr. Ventura within one week. - Discharge Plan Prescriptions/Med Rec: Levofloxacin [Levaquin] 500 mg PO Q24H #6 tablet Home Medications: Home Meds Multivit-Min/FA/Lutein/Zeaxant [Macular Vitamin Tablet] 1 tab PO BID 05/09/14 [ History] Warfarin [Coumadin] 7.5 mg PO ASDIRECTED 05/09/14 [History] Acetaminophen [Tylenol] 650 mg PO BID PRN 06/17/14 [History] Metolazone [Zaroxolyn] 2.5 mg PO MOWEFR 06/17/14 [History] Furosemide [Lasix] 40 mg PO DAILY 06/19/14 [History] predniSONE [Prednisone] 10 mg PO ASDIRECTED PRN 06/22/14 [History] Morphine Sulfate 5 - 10 mg PO Q4H PRN 07/04/16 [History] Levofloxacin [Levaquin] 500 mg PO Q24H #6 tablet 07/06/16 [Rx] Referrals: Josh eVntura MD [Primary Care Provider] - - Patient Data Vitals - Most Recent: Last Vital Signs Temp 98.4 F 07/06/16 09:14 Pulse 72 07/06/16 09:14 Resp 20 07/06/16 09:14 BP 89/52 L 07/06/16 09:14 Pulse Ox 89 L 07/06/16 09:14 Weight - Most Recent: 280 lb 14.4 oz I&O - Last 24 hours: Intake & Output 07/05/16 07/06/16 07/06/16 22:59 06:59 14:59 Intake Total 527 100 Output Total 1200 850 Balance -673 -750 Med Orders - Current: Current Medications Acetaminophen (Tylenol) 650 mg PO Q4H PRN PRN Reason: Pain (Mild 1-3)/fever Last Admin: 07/06/16 05:57 Dose: 650 mg Albuterol (Proventil Neb Soln) 2.5 mg NEB Q4H PRN PRN Reason: Shortness Of Breath/wheezing Albuterol/Ipratropium (Duoneb 3.0-0.5 Mg/3 Ml) 3 ml NEB QIDRT [facility] Last Admin: 07/06/16 07:25 Dose: Not Given Aspirin (Aspirin) 81 mg PO DAILY [facility] Last Admin: 07/06/16 08:18 Dose: 81 mg Docusate Sodium (Colace) 100 mg PO BID PRN PRN Reason: Constipation Furosemide (Lasix) 40 mg PO DAILY [facility] Last Admin: 07/06/16 08:18 Dose: Not Given Hydromorphone HCl (Dilaudid 1 Mg/Ml U/D) 2 mg PO Q2H PRN PRN Reason: PAIN Lorazepam (Ativan Oral Concentrate 1mg/0.5 Ml U/D) 0.5 mg BUCCAL Q2H PRN PRN Reason: Anxiety Magnesium Hydroxide (Milk Of Magnesia) 30 ml PO Q12H PRN PRN Reason: Constipation Metolazone (Zaroxolyn) 2.5 mg PO [id number]@0830 [facility] Last Admin: 07/05/16 09:13 Dose: 2.5 mg Ondansetron HCl (Zofran) 4 mg IV Q4H PRN PRN Reason: Nausea/Vomiting Polyethylene Glycol (Miralax) 17 gm PO DAILY PRN PRN Reason: Constipation Sodium Chloride (Saline Flush) 10 ml FLUSH ASDIRECTED PRN PRN Reason: Keep Vein Open Discontinued Medications Albuterol/Ipratropium (Duoneb 3.0-0.5 Mg/3 Ml) 3 ml NEB ONETIME ONE Stop: 07/04/16 11:04 Last Admin: 07/04/16 11:24 Dose: 3 ml Lactated Ringer's (Ringers, Lactated) 1,000 mls @ 500 mls/hr IV ASDIRECTED ONE Stop: 07/04/16 13:00 Last Admin: 07/04/16 11:25 Dose: 500 mls/hr Levofloxacin/Dextrose 750 mg/ (Premix) 150 mls @ 100 mls/hr IV ONETIME ONE Stop: 07/04/16 13:50 Last Admin: 07/04/16 12:40 Dose: 100 mls/hr Levofloxacin/Dextrose 500 mg/ (Premix) 100 mls @ 100 mls/hr IV Q24H [facility] Phytonadione 1 mg/ Sodium (Chloride) 50.5 mls @ 100 mls/hr IV ONETIME ONE Stop: 07/04/16 18:00 Last Admin: 07/04/16 17:49 Dose: 100 mls/hr Sodium Chloride (Normal Saline) 1,000 mls @ 125 mls/hr IV ASDIRECTED [facility] Last Admin: 07/05/16 06:15 Dose: 125 mls/hr Methylprednisolone Sodium Succinate (Solu-Medrol) 40 mg IVPUSH Q8H [facility] Last Admin: 07/05/16 02:25 Dose: 40 mg Morphine Sulfate (Morphine 10 Mg/0.5 Ml Oral Syringe) 5 - 10 mg PO Q1H PRN PRN Reason: PAIN Sodium Chloride (Saline Flush) 10 ml FLUSH ASDIRECTED PRN PRN Reason: Keep Vein Open Last Admin: 07/04/16 11:26 Dose: 10 ml Sodium Chloride (Saline Flush) 10 ml FLUSH ASDIRECTED PRN PRN Reason: Keep Vein Open Last Admin: 07/04/16 11:26 Dose: 10 ml *Q Meaningful Use (DIS) - VTE *Q VTE Criteria *Q: VTE Pharmacological Contraindications *Q: Active Hemorrhage - Stroke *Q Stroke Criteria *Q: - AMI *Q AMI Criteria *Q:
== END 2016-07-06 13:40 | disposition home or self-care (01) | DRG 191 ==
LOC: JP.ED 09:51 → UNDOADMIN 12:56 → JP.MS 12:56 → UNDOADMIN 16:37 → JP.MS 16:37 → UNDODISIN 07-06 13:40
PROVIDERS: ADMIT Hospitalist; ATTEND Hospitalist
DX: J18.1 Lobar pneumonia, unspecified organism (principal); J44.1 Chronic obstructive pulmonary disease with (acute) exacerbation; K92.1 Melena; J20.9 Acute bronchitis, unspecified; J44.0 Chronic obstructive pulmonary disease with (acute) lower respiratory infection; R09.02 Hypoxemia; C14.0 Malignant neoplasm of pharynx, unspecified; Z87.891 Personal history of nicotine dependence; Z79.01 Long term (current) use of anticoagulants; Z86.718 Personal history of other venous thrombosis and embolism; Z86.711 Personal history of pulmonary embolism; I50.9 Heart failure, unspecified; E11.9 Type 2 diabetes mellitus without complications
CPT/HCPCS: 36415; 71010 ×2; 80053; 83605; 83880; 85025; 87040 ×2; 94640; 96361; 96365; 99285 ×2; J1956; J7050 ×2; J7120; J7620; 81001; 85018; 85610; A9270-GY; J2920; J3430; J7040

== ENCOUNTER 2017-03-25 11:42 | Emergency (ER) | payer MEDICARE, BC ==
--- NOTE | 2017-03-25 11:59 | EDM.PDOC ---
ED HPI GENERAL MEDICAL PROBLEM - General Chief Complaint: Respiratory Problem Stated Complaint: MEDICAL Time Seen by Provider: 03/25/17 11:45 Source of Information: Reports: EMS, Old Records History Limitations: Reports: Other (patient is non-verbal) - History of Present Illness INITIAL COMMENTS - FREE TEXT/NARRATIVE: 76 yo female with end stage throat cancer who lives here in [place] with her was transported to the ER today by EMS with a few day hx of weakness and SOB. Has not been to the clinic. Is not normally on home oxygen. No reported fever. is reportedly on his way currently to the hospital. Oxygen sats at home per EMS in the upper 70's. Oxygen per nasal cannula started by EMS and ASA given(still in her mouth on arrival). Also has a hx of CHF and COPD. Onset: Gradual Onset Date: 03/22/17 Duration: Day(s):, Getting Worse Location: Reports: Chest Severity: Severe Improves with: Reports: Other (oxygen) Worsens with: Reports: Other (? time) Context: Reports: Other (throat CA, CHF, COPD) Associated Symptoms: Reports: Malaise, Shortness of Breath, Weakness. Denies: Fever/Chills Treatments [employer] REP: Reports: Aspirin, Oxygen - Related Data Allergies Allergy/AdvReac Type Severity Reaction Status Date / Time Iodinated Contrast- Oral and Allergy Severe Difficulty Verified 06/22/14 01:58 IV Dye Breathing codeine Allergy Itching Verified 06/22/14 01:58 Penicillins Allergy Itching Verified 06/22/14 01:58 tetanus and diphtheria Allergy Itching Verified 06/22/14 01:58 toxoids [Tetanus&Diphtheria Toxoid] Home Meds: Home Meds Multivit-Min/FA/Lutein/Zeaxant [Macular Vitamin Tablet] 1 tab PO BID 05/09/14 [ History] Warfarin [Coumadin] 7.5 mg PO ASDIRECTED 05/09/14 [History] Acetaminophen [Tylenol] 650 mg PO BID PRN 06/17/14 [History] Metolazone [Zaroxolyn] 2.5 mg PO MOWEFR 06/17/14 [History] Furosemide [Lasix] 40 mg PO DAILY 06/19/14 [History] predniSONE [Prednisone] 10 mg PO ASDIRECTED PRN 06/22/14 [History] Morphine Sulfate 5 - 10 mg PO Q4H PRN 07/04/16 [History] Past Medical History Cardiovascular History: Reports: Heart Failure 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 History: Reports: Endocrine/Metabolic History: Reports: Diabetes, Type II Oncologic (Cancer) History: Reports: Esophageal - Past Surgical History GI Surgical History: Reports: Appendectomy, Cholecystectomy Social & Family History - Tobacco Use Smoking Status *Q: Never Smoker Years of Tobacco use: 55 Used Tobacco, but Quit: Yes Month Tobacco Last Used: 0 Second Hand Smoke Exposure: No - Caffeine Use Caffeine Use: Reports: None - Alcohol Use Days Per Week of Alcohol Use: 0 - Recreational Drug Use Recreational Drug Use: No ED ROS GENERAL - Review of Systems Review Of Systems: Unable To Obtain Constitutional: Reports: Weakness, Fatigue Respiratory: Reports: Shortness of Breath ED EXAM, GENERAL - Physical Exam Exam: See Below Exam Limited By: Other (slow to respond when spoken to.) General Appearance: Lethargic, Obtunded, Moderate Distress, Obese Eye Exam: Bilateral Eye: Normal Inspection Ears: Normal External Exam, Normal Canal, Normal TMs Ear Exam: Bilateral Ear: Auricle Normal, Canal Normal, TM normal Nose: Normal Inspection, Normal Mucosa, No Blood Throat/Mouth: Normal Lips, Normal Oropharynx, Other (noisy respirations at the mouth) Head: Atraumatic, Normocephalic Neck: Normal Inspection Respiratory/Chest: Rales, Rhonchi Cardiovascular: Regular Rate, Rhythm, No Edema GI/Abdominal: Normal Bowel Sounds, Soft, Non-Tender, No Distention, Other (Obese ) Extremities: Normal Inspection, Normal Range of Motion Neurological: Inattentive, Confused, Slow to Respond Skin Exam: Warm, Dry, Intact, Normal Color, No Rash EKG INTERPRETATION EKG Date: 03/25/17 Time: 11:40 Rhythm: NSR Rate (Beats/Min): 81 [place]: Normal P-Wave: Present QRS: Normal ST-T: Normal QT: Normal Comparison: NA - No Prior EKG EKG Interpretation Comments: biatrial enlargement, poor R wave progression anterior leads Course - Vital Signs Text/Narrative:: Sats inadequate with nasal cannula, Non-rebreather used and patient becoming even more obtunded. Bagging resulted in CO2 decreasing and oxygenation improving. Anesth here to intubate. Vitals improved quickly after intubation. Valle cathete placed, Furosemide 40 mg IV Last Recorded V/S: Last Vital Signs Temp 36.7 C 03/25/17 13:10 Pulse 57 L 03/25/17 13:10 Resp 14 03/25/17 13:10 BP 134/71 03/25/17 13:10 Pulse Ox 95 03/25/17 13:10 - Orders/Labs/Meds Orders: Active Orders 24 hr Category Date Time Status Cardiac Monitoring [RC] .As Directed Care 03/25/17 11:50 Active EKG Documentation Completion [RC] ASDIRECTED Care 03/25/17 11:50 Active Valle Catheter Insertion [Insert Urinary Catheter] [OM. Care 03/25/17 12:00 Ordered PC] Q24H RT Airway Intubation [RC] ASDIRECTED Care 03/25/17 12:59 Active RT Ventilator ED, Adult [RC] CONTINUOUS Care 03/25/17 13:00 Active Urinary Catheter Assessment [RC] ASDIRECTED Care 03/25/17 11:52 Active Chest 1V Frontal [CR] Stat Exams 03/25/17 11:51 Taken Sodium Chloride 0.9% [Normal Saline] 1,000 ml Med 03/25/17 12:26 Active IV .BOLUS EKG 12 Lead [EK] Routine Ther 03/25/17 11:50 Ordered Medication Orders Sodium Chloride (Normal Saline) 1,000 mls @ 999 mls/hr IV .BOLUS ONE Stop: 03/25/17 13:26 Last Admin: 03/25/17 12:55 Dose: 999 mls/hr Labs: Laboratory Tests 03/25/17 03/25/17 03/25/17 Range/Units 11:53 12:01 12:01 WBC 9.6 (4.5-11.0) K/uL RBC 6.59 H (3.30-5.50) M/uL Hgb 16.2 H D (12.0-15.0) g/dL Hct 54.5 H (36.0-48.0) % MCV 83 (80-98) fL MCH 25 L (27-31) pg MCHC 30 L (32-36) % Plt Count 232 (150-400) K/uL PT (9.5-12.0) sec INR (0.80-1.20) D-Dimer, Quantitative (0.0-400.0) ng/mL Puncture Site Lt radial ABG pH 7.048 L* (7.350-7.450) ABG pCO2 176.0 H* (35.0-42.0) mmHg ABG pO2 81.3 (75.0-100.0) mmHg ABG HCO3 46.2 H (22.0-26.0) mmol/L ABG Total CO2 44.2 H (21.0-25.0) mmol/L ABG O2 Saturation 85.4 L (95.0-98.0) % ABG O2 Content 19.6 (15.0-23.0) %vol ABG Base Excess 5.7 mm/L ABG Hemoglobin 16.5 H (12.0-16.0) g/dL ABG Oxyhemoglobin 84.1 % ABG Carboxyhemoglobin 0.9 (0.0-1.6) % ABG Methemoglobin 0.6 % Saqib Test Passed O2 Delivery Device Non rebr mask Oxygen Flow Rate 15 L Sodium 146 (140-148) mmol/L Potassium 5.4 H (3.6-5.2) mmol/L Chloride 101 (100-108) mmol/L Carbon Dioxide 41 H (21-32) mmol/L Anion Gap 9.4 (5.0-14.0) mmol/L BUN 61 H D (7-18) mg/dL Creatinine 1.2 H D (0.6-1.0) mg/dL Est Cr Clr Drug Dosing 37.34 mL/min Estimated GFR (MDRD) 44 L (>60) Glucose 133 H (74-106) mg/dL Calcium 9.1 D (8.5-10.1) mg/dL Troponin I 0.272 H* (0.000-0.056) ng/mL NT-Pro-B Natriuret Pep (5-450) pg/mL Urine Color Urine Appearance Urine pH (4.5-8.0) Ur Specific Pound (1.008-1.030) Urine Protein (NEGATIVE) mg/dL Urine Glucose (UA) (NEGATIVE) mg/dL Urine Ketones (NEGATIVE) mg/dL Urine Occult Blood (NEGATIVE) Urine Nitrite (NEGATIVE) Urine Bilirubin (NEGATIVE) Urine Urobilinogen (NORMAL) mg/dL Ur Leukocyte Esterase (NEGATIVE) Urine RBC (0-5) Urine WBC (0-5) Ur Epithelial Cells Amorphous Sediment Urine Bacteria Urine Mucus Urine Other 03/25/17 03/25/1703/25/18 Range/Units 12:01 12:01 12:11 WBC (4.5-11.0) K/uL RBC (3.30-5.50) M/uL Hgb (12.0-15.0) g/dL Hct (36.0-48.0) % MCV (80-98) fL MCH (27-31) pg MCHC (32-36) % Plt Count (150-400) K/uL PT (9.5-12.0) sec INR (0.80-1.20) D-Dimer, Quantitative 1560 H (0.0-400.0) ng/mL Puncture Site ABG pH (7.350-7.450) ABG pCO2 (35.0-42.0) mmHg ABG pO2 (75.0-100.0) mmHg ABG HCO3 (22.0-26.0) mmol/L ABG Total CO2 (21.0-25.0) mmol/L ABG O2 Saturation (95.0-98.0) % ABG O2 Content (15.0-23.0) %vol ABG Base Excess mm/L ABG Hemoglobin (12.0-16.0) g/dL ABG Oxyhemoglobin % ABG Carboxyhemoglobin (0.0-1.6) % ABG Methemoglobin % Saqib Test O2 Delivery Device Oxygen Flow Rate L Sodium (140-148) mmol/L Potassium (3.6-5.2) mmol/L Chloride (100-108) mmol/L Carbon Dioxide (21-32) mmol/L Anion Gap (5.0-14.0) mmol/L BUN (7-18) mg/dL Creatinine (0.6-1.0) mg/dL Est Cr Clr Drug Dosing mL/min Estimated GFR (MDRD) (>60) Glucose (74-106) mg/dL Calcium (8.5-10.1) mg/dL Troponin I (0.000-0.056) ng/mL NT-Pro-B Natriuret Pep 08642 H (5-450) pg/mL Urine Color Yellow Urine Appearance Slightly cloudy Urine pH 5.0 (4.5-8.0) Ur Specific [place] 1.020 (1.008-1.030) Urine Protein Negative (NEGATIVE) mg/dL Urine Glucose (UA) Normal (NEGATIVE) mg/dL Urine Ketones Negative (NEGATIVE) mg/dL Urine Occult Blood Negative (NEGATIVE) Urine Nitrite Negative (NEGATIVE) Urine Bilirubin Small (NEGATIVE) Urine Urobilinogen >=12 H (NORMAL) mg/dL Ur Leukocyte Esterase Negative (NEGATIVE) Urine RBC Not seen (0-5) Urine WBC Not seen (0-5) Ur Epithelial Cells Few Amorphous Sediment Rare Urine Bacteria Few Urine Mucus Moderate Urine Other See note 03/25/17 Range/Units 12:47 WBC (4.5-11.0) K/uL RBC (3.30-5.50) M/uL Hgb (12.0-15.0) g/dL Hct (36.0-48.0) % MCV (80-98) fL MCH (27-31) pg MCHC (32-36) % Plt Count (150-400) K/uL PT 16.1 H (9.5-12.0) sec INR 1.48 H (0.80-1.20) D-Dimer, Quantitative (0.0-400.0) ng/mL Puncture Site ABG pH (7.350-7.450) ABG pCO2 (35.0-42.0) mmHg ABG pO2 (75.0-100.0) mmHg ABG HCO3 (22.0-26.0) mmol/L ABG Total CO2 (21.0-25.0) mmol/L ABG O2 Saturation (95.0-98.0) % ABG O2 Content (15.0-23.0) %vol ABG Base Excess mm/L ABG Hemoglobin (12.0-16.0) g/dL ABG Oxyhemoglobin % ABG Carboxyhemoglobin (0.0-1.6) % ABG Methemoglobin % Saqib Test O2 Delivery Device Oxygen Flow Rate L Sodium (140-148) mmol/L Potassium (3.6-5.2) mmol/L Chloride (100-108) mmol/L Carbon Dioxide (21-32) mmol/L Anion Gap (5.0-14.0) mmol/L BUN (7-18) mg/dL Creatinine (0.6-1.0) mg/dL Est Cr Clr Drug Dosing mL/min Estimated GFR (MDRD) (>60) Glucose (74-106) mg/dL Calcium (8.5-10.1) mg/dL Troponin I (0.000-0.056) ng/mL NT-Pro-B Natriuret Pep (5-450) pg/mL Urine Color Urine Appearance Urine pH (4.5-8.0) Ur Specific [place] (1.008-1.030) Urine Protein (NEGATIVE) mg/dL Urine Glucose (UA) (NEGATIVE) mg/dL Urine Ketones (NEGATIVE) mg/dL Urine Occult Blood (NEGATIVE) Urine Nitrite (NEGATIVE) Urine Bilirubin (NEGATIVE) Urine Urobilinogen (NORMAL) mg/dL Ur Leukocyte Esterase (NEGATIVE) Urine RBC (0-5) Urine WBC (0-5) Ur Epithelial Cells Amorphous Sediment Urine Bacteria Urine Mucus Urine Other Meds: Medications Generic Name Dose Route Start Last Admin Trade Name Freq PRN Reason Stop Dose Admin Sodium Chloride 1,000 mls @ 999 mls/hr 03/25/17 12:26 03/25/17 12:55 Normal Saline IV 03/25/17 13:26 999 mls/hr .BOLUS ONE Administration Discontinued Medications Generic Name Dose Route Start Last Admin Trade Name Freq PRN Reason Stop Dose Admin Furosemide 40 mg 03/25/17 12:56 03/25/17 12:35 Lasix IVPUSH 03/25/17 12:57 40 mg ONETIME ONE Administration Heparin Sodium (Porcine) 5,000 units 03/25/17 12:45 03/25/17 12:56 Heparin Sodium IVPUSH 03/25/17 12:46 Not Given ONETIME ONE Propofol 200 mg 03/25/17 12:45 Diprivan 20 Ml .ROUTE 03/25/17 12:46 .[facility] ONE - Radiology Interpretation Free Text/Narrative:: CXR-CHF with interstitial edema Departure - Departure Time of Disposition: 13:15 Disposition: DC/Tfer to Acute Hospital 02 Condition: Critical Clinical Impression: Elevated troponin I level, Throat cancer, Hyperkalemia, Subtherapeutic international normalized ratio (INR) Respiratory failure Qualifiers: Chronicity: acute on chronic Respiratory failure complication: hypercapnia Qualified Code(s): J96.22 - Acute and chronic respiratory failure with hypercapnia Congestive heart failure Qualifiers: Congestive heart failure type: unspecified congestive heart failure type Congestive heart failure chronicity: acute on chronic Qualified Code(s): I50.9 - Heart failure, unspecified - Discharge Information Referrals: Josh Ventura MD [Primary Care Provider] - Forms: ED Department Discharge - My Orders Last 24 Hours: My Active Orders 03/25/17 11:50 Cardiac Monitoring [RC] .As Directed EKG Documentation Completion [RC] ASDIRECTED EKG 12 Lead [EK] Routine 03/25/17 11:51 Chest 1V Frontal [CR] Stat 03/25/17 11:52 Urinary Catheter Assessment [RC] ASDIRECTED 03/25/17 12:00 Valle Catheter Insertion [Insert Urinary Catheter] [OM.PC] Q24H 03/25/17 12:26 Sodium Chloride 0.9% [Normal Saline] 1,000 ml IV .BOLUS 03/25/17 12:59 RT Airway Intubation [RC] ASDIRECTED 03/25/17 13:00 RT Ventilator ED, Adult [RC] CONTINUOUS - Assessment/Plan Last 24 Hours: My Active Orders 03/25/17 11:50 Cardiac Monitoring [RC] .As Directed EKG Documentation Completion [RC] ASDIRECTED EKG 12 Lead [EK] Routine 03/25/17 11:51 Chest 1V Frontal [CR] Stat 03/25/17 11:52 Urinary Catheter Assessment [RC] ASDIRECTED 03/25/17 12:00 Valle Catheter Insertion [Insert Urinary Catheter] [OM.PC] Q24H 03/25/17 12:26 Sodium Chloride 0.9% [Normal Saline] 1,000 ml IV .BOLUS 03/25/17 12:59 RT Airway Intubation [RC] ASDIRECTED 03/25/17 13:00 RT Ventilator ED, Adult [RC] CONTINUOUS
[2017-03-25] MEDS ORDERED: Sodium Chloride 0.9% 1,000 ML IV ONE (12:26)
[2017-03-25] MEDS ORDERED: DOPamine/Dextrose 5%-Water 400 MG/250 ML BAG IV SCH (12:30)
[2017-03-25] MEDS ORDERED: Heparin Sodium 5,000 Units/ML Vial IVPUSH ONE (12:45)
[2017-03-25] MEDS ORDERED: Propofol 200 MG/20 ML SDV ONE (12:45)
[2017-03-25] MEDS ORDERED: Furosemide 40 MG/4 ML VIAL IVPUSH ONE (12:56)
[2017-03-25 13:25] VITALS: BP 120/54
--- NOTE | 2017-03-25 23:40 | ANES ---
DATE OF SERVICE: 03/25/2017 INDICATIONS: Gloria is a 76-year-old female patient in our emergency department, NADIRA #[id number]. DESCRIPTION OF PROCEDURE: Ms. Laurent has entered our emergency room this morning in acute congestive heart failure on existing COPD and CHF. The emergency room physician contacted me to consult patient for intubation, stated that they attempted to place her on oxygen and diurese her, continuously to decrease the oxygen saturation while increasing her CO2 levels over 100. Upon arrival, I found a minimally responsive obese female. Discussed history. No contraindication in allergies as well as previous history of CHF and also some throat cancer. I did attempt to visualize with a #3MAC. I was able to find the epiglottis. It was difficult to visualize anything else and the patient was quite arousable with that. I backed the MAC blade out and again continued to assist her ventilations, gave her 50 mg of propofol through the IV, and after 30 seconds attempted to visualize again. Copious amounts of secretions and I suctioned. At that time, I was able to lift the epiglottis, but I was not able to get the endotracheal tube anterior enough to place it in the trachea. Again, I was not able to visualize the trachea. I aborted that attempt as well. I backed out the blade. Asked for the glide scope and a bougie. At that time, I gave her 20 more mg of propofol while assisting her ventilation. I then reinserted the MAC3 blade while they were preparing the glide scope, and with the bougie, was able to cannulate the trachea and a #7 endotracheal tube was placed on that bougie. Bilateral breath sounds. Equal chest rise. Definite fogging in the tube. Copious amounts of secretions were suctioned x2 and continued to ventilate the patient with a bag valve. Vitals remained unchanged. Oxygen saturation never dropped below 95% throughout all procedure. Again, I believe the visualization was difficult just due to the anatomy change and possibly trauma due to previous attempt by PIE ICER MACHINE and emergency room physician prior to PIE ICER MACHINE arrival. I reported off to the physician in the team in the room. We secured the tube at 23 cm and again she tolerated the procedure quite well. Wilber Moore CRNA /[id number]
--- NOTE | 2017-03-26 11:20 | CR ---
Chest 1V Frontal INDICATION: hypoxia FINDINGS: Comparison 07/04/2016. Mild cardiac enlargement, stable. Prominence of the pulmonary vascular ity, mildly increased. Infiltrate or atelectasis right lung base. There may be a small right pleural effusion. Findings suggest CHF. Recommend dedicated PA and lateral chest x-ray when clinically feasible.
== END 2017-03-25 13:50 ==
LOC: JP.ED 11:42
DX: I50.9 Heart failure, unspecified (principal); J96.22 Acute and chronic respiratory failure with hypercapnia; E87.5 Hyperkalemia; C14.0 Malignant neoplasm of pharynx, unspecified; R79.1 Abnormal coagulation profile; E11.9 Type 2 diabetes mellitus without complications; Z91.041 Radiographic dye allergy status; Z88.5 Allergy status to narcotic agent; Z88.0 Allergy status to penicillin; Z79.01 Long term (current) use of anticoagulants; Z79.899 Other long term (current) drug therapy
CPT/HCPCS: 31500; 36415; 36600; 51702; 71045; 80048; 81001; 82803; 83880; 84484; 85027; 85379; 85610; 93005; 93010; 96361; 96374; 99285; J1940; J2704; J7040; 99284; J7030